=== PATIENT | female | born 2000 | race Caucasian/White ===

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

== ENCOUNTER 2018-02-25 21:04 | Emergency (ER) | payer MEDICAID, OTHER ==
[~2018-02-25] VITALS: Ht 177.8 cm; Wt 73.0 kg
[2018-02-26] MEDS ORDERED: AMOX500C2 PO (01:19)
[2018-02-26] MEDS ORDERED: PHEN30SP9 PO (01:19)
[2018-02-26] MEDS ORDERED: dexamethasone sod phosphate 10mg/ml inj PO STA (01:20)
[2018-02-26 01:32] VITALS: BP 107/53
== END 2018-02-26 01:33 | disposition home or self-care (01) ==
LOC: ER 21:05
DX: J03.90 Acute tonsillitis, unspecified (principal); Z79.899 Other long term (current) drug therapy
CPT/HCPCS: 99283; J1100

== ENCOUNTER 2018-04-08 00:10 | Emergency (ER) | payer MEDICAID ==
[~2018-04-08] VITALS: Ht 177.8 cm; Wt 63.2 kg
[~2018-04-08 00:10] MED LIST changes: +PHEN30SP9 PO
[2018-04-08 00:49] LABS: URINE HCG NEGATIVE (NEG)
[2018-04-08 00:50] LABS: INR 0.9 INR; PROTHROMBIN TIME 9.7 SECONDS (9.0-12.0)
[2018-04-08 00:53] LABS: ALANINE AMINOTRANSFERASE 20 U/L (12-78); ALBUMIN 3.4 G/DL (3.4-5.0); ALBUMIN/GLOBULIN RATIO 0.7 (1.1-1.5); ALKALINE PHOSPHATASE 68 IU/L (20-180); ANION GAP 12 (8-16); ASPARTATE AMINO TRANSFERASE 17 U/L (10-37); BILIRUBIN,TOTAL 0.3 MG/DL (0.1-1.0); BLOOD UREA NITROGEN 18 MG/DL (7-18); BUN/CREATININE RATIO 20.7 (6.6-38.0); CALCIUM 9.1 MG/DL (8.5-10.1); CHLORIDE 100 MMOL/L (99-107); CREATININE 0.87 MG/DL (0.40-0.90); GLUCOSE 107 MG/DL (70-104); POTASSIUM 3.7 MMOL/L (3.5-5.1); SODIUM 136 MMOL/L (135-145); TOTAL CARBON DIOXIDE 24.5 MMOL/L (24-32); TOTAL PROTEIN 8.1 G/DL (6.4-8.2); eGFR 84 ML/MIN
[2018-04-08 00:54] LABS: CLARITY,URINE CLEAR (Clear); COLOR,URINE YELLOW (Yellow); GLUCOSE, URINE NEGATIVE (Neg); KETONES,URINE NEGATIVE (Neg); LEUKOCYTE ESTERASE ,URINE TRACE (Neg); NITRITES, URINE NEGATIVE (Neg); OCCULT BLOOD,URINE SMALL (Neg); PH,URINE 5.5 (4.8-8.0); PROTEIN,URINE TRACE mg/dl (Neg); UROBILINOGEN,URINE 0.2 E.U/dL (0.2-1.0)
[2018-04-08 00:55] LABS: BASOPHILS % (AUTO) 0.3 % (0-1); EOSINOPHILS % (AUTO) 0.1 % (0-6); HEMATOCRIT 34.2 % (35.0-45.0); HEMOGLOBIN 11.2 g/dl (12.0-16.0); LYMPHOCYTES # (AUTO) 2.1 X10'3 (1.1-4.8); LYMPHOCYTES % (AUTO) 16.3 % (21-51); MEAN CORPUSCULAR HEMOGLOBIN 26.2 PG (27.0-31.0); MEAN CORPUSCULAR HGB CONC 32.7 % (33.0-36.5); MEAN CORPUSCULAR VOLUME 80.3 FL (78-98); MEAN PLATELET VOLUME 9.8 FL (7.4-10.4); MONOCYTES # (AUTO) 1.6 X10'3 (0-0.9); MONOCYTES % (AUTO) 12.3 % (2-12); NEUTROPHILS # (AUTO) 9.2 X10'3 (1.8-7.7); PLATELET COUNT 300 X10'3 (140-440); RED BLOOD COUNT 4.26 X10'6 (4.20-5.60); WHITE BLOOD COUNT 12.9 X10'3 (4.5-11.0)
[2018-04-08] MEDS ORDERED: NO HOME MEDS (01:10)
[2018-04-08 01:11] LABS: UA COLLECTION TYPE CLN CATCH MIDSTREAM
[2018-04-08 01:14] LABS: BACTERIA,URINE 2+ /HPF (Neg); SQUAMOUS EPITHELIAL CELL,UR MODERATE /LPF (FEW); WBC,URINE 30-50 /HPF (0-4)
[2018-04-08 01:15] LABS: HYALINE CASTS 0-3 /LPF (NEGATIVE); MUCUS STRANDS FEW /LPF (Neg)
[2018-04-08] MEDS ORDERED: normal saline 1000ML IV soln IVB ONE (02:10)
[2018-04-08 02:20] LABS: LIPASE 86 U/L (73-393); MAGNESIUM 1.9 MG/DL (1.5-2.4)
[2018-04-08 03:03] LABS: CLARITY,URINE CLEAR (Clear); COLOR,URINE YELLOW (Yellow); GLUCOSE, URINE NEGATIVE (Neg); KETONES,URINE NEGATIVE (Neg); LEUKOCYTE ESTERASE ,URINE NEGATIVE (Neg); NITRITES, URINE NEGATIVE (Neg); OCCULT BLOOD,URINE SMALL (Neg); PH,URINE 5.5 (4.8-8.0); PROTEIN,URINE NEGATIVE (Neg); UROBILINOGEN,URINE 0.2 E.U/dL (0.2-1.0)
[2018-04-08 03:04] LABS: UA COLLECTION TYPE CLN CATCH MIDSTREAM
[2018-04-08 03:15] LABS: BACTERIA,URINE FEW /HPF (Neg); SQUAMOUS EPITHELIAL CELL,UR FEW /LPF (FEW)
[2018-04-08] MEDS ORDERED: CefTRIAXone 2gm/D5W 50ml 50 ML IV ONE (03:50)
[2018-04-08 04:40] VITALS: BP 118/65
[2018-04-08] MEDS ORDERED: CEPH250T PO (04:42)
[2018-04-08] MEDS ORDERED: NAPR-56 PO (04:44)
== END 2018-04-08 04:52 | disposition home or self-care (01) ==
LOC: ER 00:10
DX: N39.0 Urinary tract infection, site not specified (principal); R10.31 Right lower quadrant pain; K59.00 Constipation, unspecified; Z79.899 Other long term (current) drug therapy
CPT/HCPCS: 36415; 80053; 81001; 81025; 83690; 83735; 85025; 85610; 87077; 87088; 87186; 96365; 99284; J0696; J7030